=== PATIENT | female | born 1975 | race Caucasian/White ===

== ENCOUNTER 2016-11-12 17:10 | Emergency (ER) | payer BC ==
[2016-11-12] MEDS ORDERED: XANAX1 M1 PO (17:34)
[2016-11-12] MEDS ORDERED: HYDROCODON-ACE1 EA16 PO (17:35)
[2016-11-12] MEDS ORDERED: AMLODIPINE-BEN1 EAC9 PO (17:35)
[2016-11-12] MEDS ORDERED: IBUPROFEN200 M2 PO (17:35)
[2016-11-12] MEDS ORDERED: BENADRYL25 M3 PO (17:35)
[2016-11-12] MEDS ORDERED: NEO-SYNEPHRINE15 ML (17:36)
[2016-11-12] MEDS ORDERED: OMEPRAZOLE20 M3 PO (17:36)
[2016-11-12 17:52] LABS: BASO % 0.2 % (0-2); EOS % 1.3 % (0-7); EOSINOPHIL ABSOLUTE COUNT 0.1 tho/cmm (0.0-0.7); HCT-HEMATOCRIT 33.6 % (34.0-49.0); HGB-HEMOGLOBIN 11.5 gm/dl (12.0-15.5); IMMATURE GRANULOCYTES ABSOLUTE 0.01 tho/cmm (0-0.03); IMMATURE GRANULOCYTES PERCENT 0.1 % (0-0.3); LYMPH % 13.4 % (20-45); LYMPH ABSOLUTE COUNT 1.2 tho/cmm (0.8-4.5); MCH (MEAN CORPUSCULAR HGB) 29.3 pg (28.0-32.0); MCHC MEAN CORPUSCULAR HGB CONC 34.2 % (32.0-36.0); MCV (MEAN CELL VOLUME) 85.7 fl (82.0-96.0); MEAN PLATELET VOLUME 10.2 cmc (9.4-12.4); MONO % 8.9 % (0-12); MONOCYTE ABSOLUTE COUNT 0.8 tho/cmm (0.0-1.2); NEUTROPHIL ABSOLUTE COUNT 6.7 tho/cmm (1.6-8.0); NEUTROPHIL-AUTOMATED 6.7 tho/cmm (1.6-8.0); NEUTROPHILS % 76.1 % (40-80); PLATELET COUNT 235 tho/cmm (150-450); RED BLOOD COUNT 3.92 mil/cmm (4.00-5.20); RED CELL DISTRIBUTION WIDTH 12.8 % (12.4-16.4); WHITE BLOOD COUNT 8.8 tho/cmm (4.0-10.0)
[2016-11-12 18:02] LABS: ANION GAP 12 mmol/L (0-20); BLOOD UREA NITROGEN 6 mg/dl (6-24); CALCIUM 8.7 mg/dl (8.5-10.5); CARBON DIOXIDE-VENOUS 25 mmol/L (22-32); CHLORIDE 100 mmol/l (96-110); CREATININE 0.69 mg/dl (0.50-1.10); GLUCOSE 145 mg/dL (70-110); POTASSIUM 3.7 mmol/L (3.7-5.1); SODIUM 133 mmol/L (135-145); eGFR VALUE FOR BLACK >90 mL/Min
[2016-11-12 18:10] LABS: URINE APPEARANCE CLEAR; URINE BILIRUBIN NEGATIVE (NEG); URINE BLOOD MODERATE (NEG); URINE COLOR PALE YELLOW; URINE GLUCOSE (UA) NEGATIVE (NEG); URINE KETONE NEGATIVE (NEG); URINE LEUKOCYTE ESTERASE POSITIVE (NEG); URINE NITRITE NEGATIVE (NEG); URINE PROTEIN NEGATIVE (NEG); URINE SPECIFIC GRAVITY 1.005 (1.003-1.030)
[2016-11-12 18:24] LABS: URINE WBC 0-2 /[HPF] (0-5)
[2016-11-12 18:25] LABS: URINE EPITHELIAL CELLS 0-1 /[HPF] (0-10); URINE RBC 0-2 /[HPF] (0-5)
== END 2016-11-12 19:38 ==
LOC: EDMED 17:10
PROVIDERS: Emergency Medicine
DX: R50.9 Fever, unspecified (principal); T50.905A Adverse effect of unspecified drugs, medicaments and biological substances, initial encounter; I10 Essential (primary) hypertension; K21.9 Gastro-esophageal reflux disease without esophagitis
CPT/HCPCS: J1885; J2060